=== PATIENT | female | born 1960 | race Caucasian/White ===

== ENCOUNTER → 2017-03-01 | Outpatient (CLI) | payer BC ==
[~2017-03-01] VITALS: Ht 162.6 cm; Wt 104.1 kg
[~2017-03-01] MED LIST: ESTRACE0.5 MG PO; LEVOFLOXACIN500 MG PO; TUSS PO
[2017-03-01 10:00] VITALS: BP 127/76
== END ==
LOC: AMSURD 09:25
DX: Z01.818 Encounter for other preprocedural examination (principal); M17.11 Unilateral primary osteoarthritis, right knee

== ENCOUNTER → 2017-03-03 | Outpatient (CLI) | payer BC ==
[2017-03-01 10:00] VITALS: BP 127/76
== END ==
LOC: PT 08:44 → RAD 08:44 → PT 09:00

== ENCOUNTER → 2017-03-10 | Outpatient (CLI) | payer BC ==
[2017-03-01 10:00] VITALS: BP 127/76
== END ==
LOC: LAB 11:23
DX: Z01.818 Encounter for other preprocedural examination (principal); M17.11 Unilateral primary osteoarthritis, right knee

== ENCOUNTER 2017-04-21 10:00 | Outpatient (RCR) | payer BC ==
[2017-03-01 10:00] VITALS: BP 127/76
== END 2017-05-09 09:06 | disposition home or self-care (01) ==
LOC: PT 10:00
DX: M25.561 Pain in right knee (principal)

== ENCOUNTER 2017-06-25 09:27 | Emergency (ER) | payer BC ==
[~2017-06-25] VITALS: Ht 162.6 cm; Wt 104.1 kg
[2017-06-25] MEDS ORDERED: NORCO 325 MG-51 TA1 PO (09:37)
[2017-06-25 10:56] VITALS: BP 116/71
== END 2017-06-25 11:03 | disposition home or self-care (01) ==
LOC: ED 09:27
DX: G89.18 Other acute postprocedural pain (principal); M79.671 Pain in right foot; Z96.651 Presence of right artificial knee joint

== ENCOUNTER → 2018-04-11 | Outpatient (CLI) | payer BC ==
[~2018-04-11] MED LIST changes: +NORCO 325 MG-51 TA1 PO
[2018-04-11 11:45] LABS: BASO # 0.1 (0.02-0.10); EOS # 0.1 (0.04-0.40); EOS % 1.1 % (1.0-5.0); HEMATOCRIT 43.3 % (37.0-47.0); LYMPH# 2.9 (1.50-4.00); MEAN CELL VOLUME 92 fl (78-100); MEAN CORPUSCULAR HEMOGLOBIN 30 pg (27-31); MEAN CORPUSCULAR HGB CONC 32 g/dL (33-37); MEAN PLATELET VOLUME 9.8 fl (7.4-10.4); MONO # 0.6 (0.20-0.80); NEU # 3.6 (1.40-6.50); PLATELET COUNT 295 K/mm3 (130-400); RED BLOOD COUNT 4.69 M/mm3 (4.10-5.30); RED CELL DISTRIBUTION WIDTH 13.7 % (11.5-14.5); WHITE BLOOD COUNT 7.2 K/mm3 (4.8-10.8)
[2018-04-11 12:05] LABS: ALBUMIN 4.1 g/dL (3.5-5.0); BUN/CREATININE RATIO 27.3 (6.0-26.0); CALCIUM 8.6 mg/dL (8.4-10.2); POTASSIUM 3.6 mmol/L (3.6-5.0); TOTAL BILIRUBIN 0.5 mg/dL (0.2-1.3); TOTAL PROTEIN 7.2 g/dL (6.3-8.2)
[2018-04-11 13:29] LABS: ERYTHROCYTE SEDIMENTATION RATE 6 mm/hr (0-30)
== END ==
LOC: LAB 11:15
PROVIDERS: Internal Medicine
DX: R05 Cough (principal); K21.9 Gastro-esophageal reflux disease without esophagitis

== ENCOUNTER 2019-11-30 09:33 | Emergency (ER) | payer BC ==
[~2019-11-30] VITALS: Ht 162.6 cm; Wt 109.1 kg
[2019-11-30] MEDS ORDERED: PREDNISONE10 MG PO (09:46)
[2019-11-30] MEDS ORDERED: PROAIR HFA0.09 MG/AC IH (09:46)
[2019-11-30 10:20] LABS: HEMATOCRIT 40.4 % (37.0-47.0); HEMOGLOBIN 12.8 g/dL (12.5-16.0); MEAN CELL VOLUME 93 fl (78-100); MEAN CORPUSCULAR HEMOGLOBIN 29 pg (27-31); MEAN CORPUSCULAR HGB CONC 32 g/dL (33-37); MEAN PLATELET VOLUME 9.3 fl (7.4-10.4); PLATELET COUNT 237 K/mm3 (130-400); RED BLOOD COUNT 4.36 M/mm3 (4.10-5.30); RED CELL DISTRIBUTION WIDTH 13.3 % (11.5-14.5); WHITE BLOOD COUNT 8.1 K/mm3 (4.8-10.8)
[2019-11-30 10:43] LABS: LYMPHOCYTE 3 % (20-51); MONOCYTE 14 % (3-10); NEUTROPHILS 83 % (42-75)
[2019-11-30 10:58] VITALS: BP 126/80
== END 2019-11-30 10:58 | disposition home or self-care (01) ==
LOC: ED 09:33
PROVIDERS: Family Medicine
DX: J10.1 Influenza due to other identified influenza virus with other respiratory manifestations (principal)

== ENCOUNTER 2019-12-04 16:34 | Emergency (ER) | payer BC ==
[~2019-12-04] VITALS: Ht 172.7 cm; Wt 72.3 kg
[~2019-12-04 16:34] MED LIST changes: +PREDNISONE10 MG PO; +PROAIR HFA0.09 MG/AC IH
[2019-12-04 17:34] VITALS: BP 149/82
== END 2019-12-04 17:45 | disposition left against medical advice (07) ==
LOC: ED 16:34
DX: R05 Cough (principal)

== ENCOUNTER → 2020-06-30 | Outpatient (CLI) | payer BC | LOC: RAD 07:51 | DX: M19.022 Primary osteoarthritis, left elbow (principal); M77.02 Medial epicondylitis, left elbow ==

== ENCOUNTER → 2020-11-05 | Outpatient (CLI) | payer BC | LOC: RAD 16:06 | DX: R06.00 Dyspnea, unspecified (principal); Z20.822 Contact with and (suspected) exposure to COVID-19 ==

== ENCOUNTER → 2021-06-12 | Outpatient (CLI) | payer BC ==
[2021-06-12 14:28] LABS: ALBUMIN 4.1 g/dL (3.5-5.0); POTASSIUM 3.7 mmol/L (3.5-5.1)
[2021-06-12 14:29] LABS: CALCIUM 9.4 mg/dL (8.3-10.5)
[2021-06-12 14:30] LABS: TOTAL PROTEIN 7.1 g/dL (6.4-8.3)
[2021-06-12 14:32] LABS: TOTAL BILIRUBIN 0.5 mg/dL (0.2-1.2)
== END ==
LOC: LAB 14:06
PROVIDERS: Nurse Practitioner
DX: B35.4 Tinea corporis (principal)